=== PATIENT | female | born 1965 | race American Indian/Alaskan Native ===

== ENCOUNTER 2019-05-29 06:14 | Day surgery (SDC) | payer OTHER ==
[~2019-05-29 06:14] MED LIST: ANCEF/STERILE WATER 2 GM/20 ML IV NR; MARCAINE-EPI/PF 0.5%-1:200,000 INFILTRATI ONE
[2019-05-29] MEDS ORDERED: LACTATED RINGERS 1,000 ML IV SCH (06:20)
[2019-05-29] MEDS ORDERED: MARCAINE-EPI 0.5%-1:200,000 INFILTRATI ONE (06:44)
[2019-05-29] MEDS ORDERED: DEPO-Medrol ONE (06:44)
[2019-05-29] MEDS ORDERED: NACL BACTERIOSTATIC INFILTRATI ONE (06:57)
[2019-05-29] MEDS ORDERED: DILAUDID IV PRN (07:33)
--- NOTE | 2019-05-29 07:36 | Anesthesia Day of Surgery ---
Anesthesia Day of Surgery - Day of Surgery Patient Examined: Yes Patient H&P Reviewed: Yes Patient is NPO: Yes
--- NOTE | 2019-05-29 07:36 | Anesthesia Consultation ---
Anesthesia Consult and Med Hx Date of service: 05/29/19 - Airway Anesthetic Teeth Evaluation: Good ROM Head & Neck: Adequate Mental/Hyoid Distance: Adequate Mallampati Class: Class II Intubation Access Assessment: Probably Good - Pulmonary Exam CTA: Yes - Cardiac Exam Cardiac Exam: RRR - Pre-Operative Health Status ASA Pre-Surgery Classification: ASA1 Proposed Anesthetic Plan: General - Pulmonary Hx Smoking: No Hx Respiratory Symptoms: No Hx Sleep Apnea: No (RJ PRE SCREEN LOW RISK.) - Cardiovascular System Hx Hypertension: No Hx Heart Attack/AMI: No Hx Percutaneous Transluminal Coronary Angioplasty (PTCA): No Hx Cardia Arrhythmia: No - Central Nervous System Hx Seizures: No CVA: No - Gastrointestinal Hx Gastroesophageal Reflux Disease: No - Endocrine Hx Renal Disease: No Hx Liver Disease: No Hx Insulin Dependent Diabetes: No Hx Non-Insulin Dependent Diabetes: No Hx Thyroid Disease: No - Other Systems Hx Cancer: Yes (hx breast ca 2007) Hx Obesity: Yes
[2019-05-29] MEDS ORDERED: SUBLIMAZE ONE ×2 (07:53→08:57)
[2019-05-29] MEDS ORDERED: DIPRIVAN 10 MG/ML IV ONE ×2 (07:53→08:21)
[2019-05-29] MEDS ORDERED: VERSED IV NR (08:00)
[2019-05-29] MEDS ORDERED: NEURONTIN PO NR (08:00)
[2019-05-29] MEDS ORDERED: XYLOCAINE MPF 2% ONE (09:15)
[2019-05-29] MEDS ORDERED: DEPO-Medrol INTRA-ARTI ONE (09:15)
[2019-05-29] MEDS ORDERED: MARCAINE-EPI/PF 0.5%-1:200,000 INFILTRATI ONE (09:15)
[2019-05-29] MEDS ORDERED: ZOFRAN ONE (09:15)
[2019-05-29] MEDS ORDERED: PHENYLEPHRINE/NS Syringe 1,000 MCG/10 ML IV ONE (09:15)
[2019-05-29] MEDS ORDERED: DECADRON ONE (09:15)
[2019-05-29] MEDS ORDERED: ROBINUL ONE (09:15)
--- NOTE | 2019-05-29 09:36 | Procedure Note ---
Date of procedure: 05/29/19 Pre-op diagnosis: medial meniscus tear left knee Post-op diagnosis: same Procedure: Arthroscopy left knee partial medial meniscectomy with abrasion chondroplasty of the medial compartment Procedure The patient was brought to the OR placed in the OR table in supine position following induction and intubation by anesthesia the patient's left lower extremity was prepped and draped in the usual sterile manner.Atenolol procedure was done to identify the patient and the correct operative site. 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 Scope was then placed into the intercondylar notch. Anterior cr uciate ligament was seen and appeared to be intact next placing the leg in a figure for position of the lateral compartment was explored. The patient was noted to have mild scarring of the inner portion of the lateral meniscus D articular cartilage appeared normal and consistency the suprapatellar pouch was explored and no loose bodies or abnormalities were seen here next the arthroscope was then repositioned back into the medial compartment using the arthroscopic shaver. Posterior horn medial meniscus was then debrided back to healthy appearing articular cartilage the meniscal cartilage sorry D articular cartilage was also debrided The wound was copiously irrigated second look was done no residual bony and soft tissue debris was seen the arthroscope was then removed the stab wounds were repaired Marcaine and Depo-Medrol mixture was then injected intra-articularly with routine postoperative dressings were applied the patient tolerated the procedure Anesthesia: LEEANNA Surgeon: FARNAZ MAY Tin Pourer: CAROLIN MAHARAJ Estimated blood loss: minimal Pathology: none Condition: stable Disposition: PACU
[2019-05-29 10:35] VITALS: BP 138/81
[2019-05-29] MEDS ORDERED: NORCO 7.5/325 PO PRN (11:30)
--- NOTE | 2019-05-29 16:12 | Post Anesthesia Evaluation ---
- Post Anesthesia Evaluation Patient Participated: Yes Airway Patent: Yes Stable Respiratory Function: Yes Nausea/Vomiting: No Temp > 96.8F: Yes Pain Manageable: Yes Adequeate Hydration: Yes Anesthesia Complications: No
== END 2019-05-29 11:30 | disposition home or self-care (01) ==
LOC: OR 06:14
PROVIDERS: ATTEND Orthopaedic Surgery
DX: S83.242A Other tear of medial meniscus, current injury, left knee, initial encounter (principal); E66.9 Obesity, unspecified; Z79.899 Other long term (current) drug therapy; Z68.32 Body mass index [BMI] 32.0-32.9, adult; Z85.3 Personal history of malignant neoplasm of breast; Z98.890 Other specified postprocedural states; X58.XXXA Exposure to other specified factors, initial encounter; Y93.89 Activity, other specified; Y92.89 Other specified places as the place of occurrence of the external cause; Y99.8 Other external cause status
CPT/HCPCS: 29881; J0690; J1040; J1100; J2250; J2370; J2405; J2704; J3010; J7120; J1030